=== PATIENT | female | born 1995 | race Caucasian/White ===

== ENCOUNTER 2018-05-10 12:49 | Emergency (ER) | payer OTHER, SELFPAY ==
[2018-05-10 12:49] VITALS: BP 122/67; PULSE 132; RESP 18; TEMP 36.6; O2SAT 99; BMI 20.2
--- NOTE | 2018-05-10 13:14 | RAD_ITS ---
STUDY: X-RAY CHEST REASON FOR EXAM: Female, 23 years old. Tachycardia and dizziness. TECHNIQUE: PA and lateral views of the chest. COMPARISON: Comparison is made with prior study dated October 30, 2016. FINDINGS: The lungs are clear and expanded. There is no demonstrated pleural abnormality. Normal size heart. Normal mediastinum and [place]. Normal visualized pulmonary arteries. Normal visualized aortic arch and descending thoracic aorta. Normal visualized thoracic spine. Normal visualized ribs, clavicles, and shoulders. There is no demonstrated abnormality of the visualized soft tissue structures of the upper abdomen. RAD/Chest PA and Lateral IMPRESSION: Normal x-ray examination of the chest. Electronically Signed: Shreyas Kidd, at 14:26 EDT , Service support ,
--- NOTE | 2018-05-10 13:14 | EKG12_ITS ---
Test Reason : PALPATIONS Blood Pressure : / mmHG Vent. Rate : 116 BPM Atrial Rate : 116 BPM P-R Int : 130 ms QRS Dur : 088 ms QT Int : 330 ms P-R-T Axes : 063 074 042 degrees QTc Int : 458 ms Sinus tachycardia Otherwise normal ECG Confirmed by ARNOLDO DO, DAVID ([id number]), online editor SIS LEON ([id number]) on 05/13/2018 1:45:30 PM Referred By: KANE Confirmed By:DAVID MCLAUGHLIN MD
[2018-05-10] MEDS: 0.9% Normal Saline 1,000 ML 1000 ML IV (13:45)
[2018-05-10 13:52] LABS: Absolute Lymphocyte Count 1.68 X10^3/ul (0.83-4.51); Absolute Neutrophil Count 5.3 X10^3/uL (2.0-7.7); Basophil# 0.02 X10^3/uL; Basophil% 0.3 % (0-1); Eosinophil# 0.06 X10^3/uL; Eosinophils% 0.8 % (0-5); Hematocrit 40.1 % (37-47); Hemoglobin 12.8 g/dl (12.0-15.0); Lymphocyte # 1.68 X10^3/ul (4.0); Lymphocyte % 21.8 % (19-41); Mean Corp Hgb Conc 31.9 g/gl (32-36); Mean Corpuscular Hgb 28.3 pg (27.0-32.0); Mean Corpuscular Volume 88.7 fL (81-99); Mean Platelet Vol. 9.3 fl (6.2-12.0); Monocyte# 0.66 X10^3/uL; Monocyte% 8.5 % (0-10); Neutrophil # 5.29 X10^3/uL (2.7-7.7); Neutrophil % 68.5 % (47-70); POSITIVE COUNT NO; POSITIVE DIFFERENTIAL NO; POSITIVE MORPHOLOGY NO; Platelet Count 395 K/mm3 (150-450); RBC Distribution Width CV 13.2 % (11.6-14.6); RBC Distribution Width SD 42.4 fl (35.1-43.9); Red Blood Count 4.52 M/mm3 (4.2-5.4); White Blood Count 7.7 K/mm3 (4.4-11.0)
[2018-05-10 14:09] LABS: Anion Gap 5 (5-15); BUN 17 mg/dL (7-18); BUN/Creat Ratio 20.7 RATIO (10-20); Calcium,Total 9.1 mg/dL (8.5-10.1); Chloride 104 mmol/L (98-107); Creatinine, Serum 0.82 mg/dL (0.55-1.02); EST Glomerular Filtration Rate 92 mL/min (>60); Est Glom Filt Rate - Afr Amer 112 mL/min (>60); Estimated Creatinine Clearance 111.95 ml/min; Glucose 88 mg/dL (74-106); Potassium 4.3 mmol/L (3.5-5.1); Sodium Level 137 mmol/L (136-145)
[2018-05-10 14:21] LABS: D-Dimer Quantitative (DVT/PE) < 0.27 FEU/ug/m (0.27-0.49); Pregnancy, Serum, hCG Quali. NEGATIVE Negative (0-9 Nonpreg)
[2018-05-10] MEDS: 0.9% Normal Saline 1,000 ML 999 ML IV (15:30)
[2018-05-10 15:32] VITALS: BP 126/81; PULSE 99; RESP 20; O2SAT 100
--- NOTE | 2018-05-10 15:33 | ED.RN ---
PT AMBULATED. HR AT REST=90'S, WHEN STANDING HR INCREASES TO 120'S BUT QUICKLY DECREASED TO LOW 100'S WHEN STANDING STILL. AMB IN [place] THEN RETURNED TO ROOM HR=LOW 100'S. WHEN PT WENT TO SIT BACK IN BED HR INCREASED TO 120'S BUT QUICKLY DECREASED TO 90'S WHEN LAYING STILL. REPORTS DIZZINESS FROM EARLIER HAS IMPROVED
--- NOTE | 2018-05-10 16:03 | ED.VISSUMM ---
- ER Visit Summary Date of Service: 05/10/18 Chief Complaint: Fast heart rate History of Present Illness: The patient is a 23 F with a known resting heart rate of about 90. Patient states after working out this morning she felt like her heart was racing. When she checked her heart rate was in the 140s. She states she feels slightly dizzy when standing. She denies any difficulty during her workout had no symptoms at that time. She denies any new medications. She does not drink caffeine. Patient denies chest pain or shortness of breath. She did travel to [place] 2 weeks ago had a long flight. Physical Examination: Blood pressure is 122/67, temperature 98, heart rate 132, respiratory rate 18, pulse ox 99% on room air. Patient is sitting upright in bed. She is in no acute distress. Heart rate fluctuates between 90 and 125 during her interview. Head neck examination is normal. Heart is tachycardic. Lungs sounds clear. Abdomen is soft and nontender. Lower extremity examination was no calf tenderness or edema. Test Results: EKG is sinus tach at 116 with no acute ischemia. Two-view chest x-ray is unremarkable. CBC and chemistry studies normal. Troponin is less than 0.015. D-dimer is less than 0.27. test is negative. TSH is normal. Emergency Department Course and Treatment: Patient was given a liter of IV fluids. Following this she was ambulated. Heart rate would go between 90 and 120. Patient did not have lightheadedness. She is given a second liter of IV fluids. After second liter of fluids patient continues to feel improved. Resting heart rate is now in the 80s. She will still jump into the 120s with exertion, but will recover much quicker. She does not have lightheadedness or dizziness with it. She will push fluids over the next several days. She will follow-up with [facility]. Treatment Plan: [] Disposition: Discharge Impression: Tachycardia, uncertain etiology, improving This note was generated with [employer] ([employer]) dictation software. It may contain incorrect words, spelling, and punctuation that were not noted in review of the chart prior to signing ED Disposition - Plan for ED Patient: Referrals: Gavin Yancey MD [Primary Care Provider] -
--- NOTE | 2018-05-10 16:40 | ED.DEP ---
ED Disposition - Plan for ED Patient: Disposition: Home or Assisted Living Instructions: ED Palpitations [facility] - 1 Day for another exam
--- NOTE | 2018-05-10 16:41 | DCINST.ED_ITS ---
ED Disposition - Plan for ED Patient: Disposition: Home or Assisted Living Instructions: ED Palpitations [facility] - 1 Day for another exam
[2018-05-10 16:50] VITALS: BP 133/90; PULSE 93; RESP 14; O2SAT 96
== END 2018-05-10 16:53 | disposition home or self-care (01) ==
PROVIDERS: Emergency Provider Emergency Medicine; Family Provider Pediatrics; PCP Pediatrics
DX: R00.0 Tachycardia, unspecified (principal); F90.9 Attention-deficit hyperactivity disorder, unspecified type
CPT/HCPCS: 71046; 80048; 84443; 84484; 84703; 85025; 85379; 93005; 96360; 96361; 99284; J7030; A4216